=== PATIENT | male | born 1995 | race Caucasian/White ===

== ENCOUNTER 2020-11-19 04:18 | Emergency (ER) | payer OTHER ==
[~2020-11-19] VITALS: Ht 165.1 cm; Wt 72.7 kg
[2020-11-19 05:09] VITALS: BP 118/77
== END 2020-11-19 05:47 | disposition home or self-care (01) ==
LOC: EMS 04:19
DX: F20.9 Schizophrenia, unspecified (principal); J45.909 Unspecified asthma, uncomplicated; F17.210 Nicotine dependence, cigarettes, uncomplicated
CPT/HCPCS: 99281; Z7502